=== PATIENT | male | born 1990 | race Caucasian/White ===

== ENCOUNTER 2018-10-12 07:00 | Emergency (ER) | payer SELFPAY ==
[2015-01-08 23:52] VITALS: BP 110/56
[~2018-10-12] VITALS: Ht 177.8 cm; Wt 104.3 kg
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
[2018-10-12] MEDS ORDERED: KETOROLAC 60 MG/2 ML VIAL. IM ONE (07:30)
[2018-10-12] MEDS ORDERED: ONDANSETRON ODT 4 MG TAB.RAPDIS. PO ONE (07:30)
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
[2018-10-12] MEDS ORDERED: HYDR-3164 PO (08:22)
[2018-10-12] MEDS ORDERED: ONDA4TAB7 PO (08:22)
== END 2018-10-12 08:53 | disposition home or self-care (01) ==
LOC: ER 07:00
DX: S06.0X9A Concussion with loss of consciousness of unspecified duration, initial encounter (principal); R11.0 Nausea; F17.210 Nicotine dependence, cigarettes, uncomplicated; Z71.6 Tobacco abuse counseling; V49.9XXA Car occupant (driver) (passenger) injured in unspecified traffic accident, initial encounter; Y93.I9 Activity, other involving external motion; Y92.89 Other specified places as the place of occurrence of the external cause; Y99.8 Other external cause status
CPT/HCPCS: 70450; 96372; 99284; J1885; Q0162